=== PATIENT | female | born 1950 | race Caucasian/White ===

== ENCOUNTER 2017-09-11 09:00 | Emergency (ER) | payer OTHER ==
[~2017-09-11] VITALS: Ht 160 cm; Wt 93.0 kg
[2017-09-11 09:05] VITALS: Ht 160 cm; Wt 93.0 kg
[2017-09-11 10:18] VITALS: BP 105/62
== END 2017-09-11 10:18 | disposition home or self-care (01) ==
LOC: ED 09:00
DX: S63.502A Unspecified sprain of left wrist, initial encounter (principal); E03.9 Hypothyroidism, unspecified; E78.00 Pure hypercholesterolemia, unspecified; E66.9 Obesity, unspecified; I10 Essential (primary) hypertension; Z86.73 Personal history of transient ischemic attack (TIA), and cerebral infarction without residual deficits; Z87.891 Personal history of nicotine dependence

== ENCOUNTER 2018-03-07 20:00 | Emergency (ER) | payer OTHER ==
[~2018-03-07] VITALS: Ht 162.6 cm; Wt 93.4 kg
[2018-03-07 20:17] VITALS: Ht 162.6 cm; Wt 93.4 kg
[2018-03-07 22:09] VITALS: BP 150/86
== END 2018-03-07 22:09 | disposition home or self-care (01) ==
LOC: ED 20:00
DX: S40.011A Contusion of right shoulder, initial encounter (principal); I10 Essential (primary) hypertension; E78.00 Pure hypercholesterolemia, unspecified; E03.9 Hypothyroidism, unspecified; W01.0XXA Fall on same level from slipping, tripping and stumbling without subsequent striking against object, initial encounter; Y93.89 Activity, other specified; Y92.89 Other specified places as the place of occurrence of the external cause; Y99.8 Other external cause status
CPT/HCPCS: J1885

== ENCOUNTER 2018-09-26 14:05 | Emergency (ER) | payer OTHER ==
[~2018-09-26] VITALS: Ht 165.1 cm; Wt 93.9 kg
[2018-09-26 14:21] VITALS: BP 124/75; Ht 165.1 cm; Wt 93.9 kg
== END 2018-09-26 16:12 | disposition home or self-care (01) ==
LOC: ED 14:05
DX: H11.31 Conjunctival hemorrhage, right eye (principal); I10 Essential (primary) hypertension; E78.00 Pure hypercholesterolemia, unspecified; E03.9 Hypothyroidism, unspecified